=== PATIENT | male | born 1940 | race Caucasian/White ===

== ENCOUNTER → 2023-02-17 | Outpatient (CLI) | payer MEDICARE ==
[~2023-02-17] MED LIST: ASPI-556 PO; ATOR20TA65 PO; CARV12.511 PO; CYAN10007 IJ; FISH1CAP49 PO; FURO20TA4 PO; INSU3INS3 SQ; LIRA0.6P SQ; LOSA25TA41 PO; MV-M1TAB20 PO; OMEP-272 PO; PUMP160C PO
== END | disposition home or self-care (01) ==
LOC: SHCH 13:16
PROVIDERS: ATTEND Internal Medicine Cardiovascular Disease
DX: I11.9 Hypertensive heart disease without heart failure (principal); E11.9 Type 2 diabetes mellitus without complications; E78.5 Hyperlipidemia, unspecified; Z95.1 Presence of aortocoronary bypass graft
CPT/HCPCS: 93306

== ENCOUNTER → 2024-01-04 | Outpatient (CLI) | payer MEDICARE | END | disposition home or self-care (01) | LOC: SHCH 07:44 | PROVIDERS: ATTEND Internal Medicine Cardiovascular Disease | DX: I87.2 Venous insufficiency (chronic) (peripheral) (principal); I87.1 Compression of vein; I73.9 Peripheral vascular disease, unspecified | CPT/HCPCS: 93925; 93970 ==